=== PATIENT | female | born 1980 | race Caucasian/White ===

== ENCOUNTER 2018-09-30 15:09 | Emergency (ER) | payer OTHER ==
[~2018-09-30] VITALS: Ht 165.1 cm; Wt 90.7 kg
[~2018-09-30 15:09] MED LIST: Percocet 5-3251 EACH PO
[2018-09-30] MEDS ORDERED: CEPH500 PO (15:26)
[2018-09-30] MEDS ORDERED: Bactrim Ds Tab1 EACH PO (15:26)
== END 2018-09-30 15:46 | disposition home or self-care (01) ==
LOC: ER 15:09
DX: L03.317 Cellulitis of buttock (principal); L03.116 Cellulitis of left lower limb; L03.115 Cellulitis of right lower limb; Z88.8 Allergy status to other drugs, medicaments and biological substances; F17.200 Nicotine dependence, unspecified, uncomplicated
CPT/HCPCS: 81025; 99283

== ENCOUNTER 2019-02-14 06:27 | Emergency (ER) | payer OTHER ==
[~2019-02-14] VITALS: Ht 165.1 cm; Wt 90.7 kg
[~2019-02-14 06:27] MED LIST changes: +Bactrim Ds Tab1 EACH PO; +CEPH500 PO
[2019-02-14] MEDS ORDERED: RISP3 PO (07:22)
[2019-02-14] MEDS ORDERED: ATOM10 (07:24)
[2019-02-14] MEDS ORDERED: BUSP5 (07:24)
[2019-02-14] MEDS ORDERED: Roxicodone5 MG PO (08:53)
== END 2019-02-14 09:46 | disposition home or self-care (01) ==
LOC: ER 06:27
DX: S82.832A Other fracture of upper and lower end of left fibula, initial encounter for closed fracture (principal); S70.11XA Contusion of right thigh, initial encounter; F17.200 Nicotine dependence, unspecified, uncomplicated; Z88.8 Allergy status to other drugs, medicaments and biological substances; Z79.899 Other long term (current) drug therapy; W01.0XXA Fall on same level from slipping, tripping and stumbling without subsequent striking against object, initial encounter
CPT/HCPCS: 29505; 73590; 73630; 96372-59; 99283-25; A9270; J1170

== ENCOUNTER 2023-06-23 02:19 | Emergency (ER) | payer OTHER ==
[~2023-06-23] VITALS: Ht 165.1 cm; Wt 65.8 kg
[~2023-06-23 02:19] MED LIST changes: +ATOM10; +BUSP5; +RISP3 PO; +Roxicodone5 MG PO
[2023-06-23 02:34] VITALS: BP 122/84
== END 2023-06-23 05:56 | disposition home or self-care (01) ==
LOC: ER 02:19
DX: S93.401A Sprain of unspecified ligament of right ankle, initial encounter (principal); X50.1XXA Overexertion from prolonged static or awkward postures, initial encounter; Z88.8 Allergy status to other drugs, medicaments and biological substances; Z79.899 Other long term (current) drug therapy; F17.200 Nicotine dependence, unspecified, uncomplicated
CPT/HCPCS: 29515; 73610; 96372-59; 99283-25; A9270; J1885

== ENCOUNTER 2023-12-04 04:28 | Emergency (ER) | payer OTHER ==
[~2023-12-04] VITALS: Ht 165.1 cm; Wt 68.0 kg
[2023-12-04 04:33] VITALS: BP 156/80
== END 2023-12-04 04:45 | disposition home or self-care (01) ==
LOC: ER 04:28
DX: F15.129 Other stimulant abuse with intoxication, unspecified (principal); F17.200 Nicotine dependence, unspecified, uncomplicated; Z88.6 Allergy status to analgesic agent
CPT/HCPCS: 99282

== ENCOUNTER 2024-04-10 05:53 | Emergency (ER) | payer OTHER ==
[~2024-04-10] VITALS: Ht 167.6 cm; Wt 90.7 kg
[2024-04-10 05:59] VITALS: BP 140/98
== END 2024-04-10 06:46 | disposition home or self-care (01) ==
LOC: ER 05:53
DX: F15.929 Other stimulant use, unspecified with intoxication, unspecified (principal); F17.200 Nicotine dependence, unspecified, uncomplicated; Z88.6 Allergy status to analgesic agent
CPT/HCPCS: 99282

== ENCOUNTER 2024-05-28 14:30 | Emergency (ER) | payer OTHER ==
[~2024-05-28] VITALS: Ht 165.1 cm; Wt 90.7 kg
[2024-05-28 15:38] VITALS: BP 136/110
[2024-05-28] MEDS ORDERED: BUSPIRONE HCL30 M6 PO (20:09)
[2024-05-28] MEDS ORDERED: RISP4 PO (20:09)
== END 2024-05-28 20:36 | disposition left against medical advice (07) ==
LOC: ER 14:30
DX: Z77.098 Contact with and (suspected) exposure to other hazardous, chiefly nonmedicinal, chemicals (principal); Z53.29 Procedure and treatment not carried out because of patient's decision for other reasons
CPT/HCPCS: 93005; 93010; 99282-25

== ENCOUNTER 2024-05-29 15:21 | Emergency (ER) | payer OTHER ==
[~2024-05-29] VITALS: Ht 165.1 cm; Wt 90.7 kg
[~2024-05-29 15:21] MED LIST changes: +BUSPIRONE HCL30 M6 PO; +RISP4 PO
[2024-05-29 15:24] VITALS: BP 140/88
[2024-05-29] MEDS ORDERED: Tetracaine HCl/Pf 0.5% Opth Soln 4 ml RIGHTEYE ONE (16:40)
[2024-05-29] MEDS ORDERED: Fluorescein Sod 1MG Opth Strips RIGHTEYE ONE (16:40)
[2024-05-29 17:10] LABS: BASOPHILS ABSOLUTE AUTO 0.05 K/mm3 (0.00-0.23); BASOPHILS PERCENT AUTO 0 % (0-2); EOSINOPHILS ABSOLUTE AUTO 0.02 K/mm3 (0.00-0.68); EOSINOPHILS PERCENT AUTO 0 % (0-6); Hematocrit 39.7 % (33.0-51.0); Hemoglobin 13.9 g/dL (11.5-16.0); IMMATURE GRAN ABSOLUTE AUTO 0.07 K/mm3 (0.00-0.10); IMMATURE GRAN PERCENT AUTO 1 % (0-1); LYMPHOCYTES ABSOLUTE AUTO 1.42 K/mm3 (0.84-5.20); LYMPHOCYTES PERCENT AUTO 12 % (21-46); MONOCYTES ABSOLUTE AUTO 1.11 K/mm3 (0.16-1.47); MONOCYTES PERCENT AUTO 9 % (4-13); Mean Corpuscular HGB 31.8 pg (26.0-34.0); Mean Corpuscular Volume 91 fL (80-100); Mean Platelet Volume 9.7 fL (9.1-12.4); NEUTROPHILS ABSOLUTE AUTO 9.35 K/mm3 (1.96-9.15); NEUTROPHILS PERCENT AUTO 78 % (41-73); Platelet Count 249 K/mm3 (150-400); RDW Coefficient Variation 12.8 % (11.7-14.2); RDW Standard Deviation 42.2 fL (35.1-46.3); Red Blood Cell Count 4.37 M/mm3 (3.80-5.20); White Blood Cell Count 12.02 K/mm3 (4.00-11.30)
[2024-05-29 17:38] LABS: Ethanol (Alcohol), Blood, Med <3 mg/dL; Salicylate <1.7 mg/dL (2.8-20.0)
[2024-05-29 17:40] LABS: Acetaminophen, Random <2.0 ug/mL (10.0-30.0); Alanine Aminotransfer (ALT/SGP 38 U/L (12-78); Albumin, Blood 3.7 g/dL (3.4-5.0); Albumin/Globulin Ratio 0.9 (0.8-1.8); Alk Phos 50 U/L (50-136); Anion Gap 16 mmol/L (3-11); Aspartate Aminotrans (AST/SGOT 45 U/L (12-37); Bilirubin, Total 3.7 mg/dL (0.1-1.0); Blood Urea Nitrogen 16 mg/dL (8-24); Bun/Creatinine Ratio 28.9 (12.0-20.0); CO2, Blood 17 mmol/L (21-32); Calcium, Blood 9.2 mg/dL (8.5-10.1); Chloride, Blood 107 mmol/L (98-108); Creatinine, Blood 0.55 mg/dL (0.40-1.00); Glomerular Filtration Rate 114 (60-); Glucose, Blood 85 mg/dL (70-99); Potassium, Blood 3.6 mmol/L (3.5-5.5); Sodium, Blood 136 mmol/L (136-145); Total Protein, Blood 7.7 g/dL (6.4-8.2)
[2024-05-29] MEDS ORDERED: Ondansetron 4 MG SoluTab SL ONE (18:30)
[2024-05-29] MEDS ORDERED: OxyCODONE HCL 5 MG TAB PO ONE (18:30)
[2024-05-29] MEDS ORDERED: Erythromycin 0.5% Opth Oint 1 gm RIGHTEYE ONE (19:35)
[2024-05-29 20:09] LABS: Source, Urine Clean Catch
[2024-05-29 20:16] LABS: Appearance, Urine Clear (Clear); Bilirubin, Urine Neg (Neg); Blood, Urine Neg (Neg); Color, Urine Yellow (P-Yellow); Glucose Qualitative, Urine Neg (Neg); Ketones, Urine 4+ (Neg); Leukocyte Esterase, Urine Neg (Neg); Nitrite, Urine Neg (Neg); Protein, Urine 1+ (Neg); Urobilinogen, Urine NORM (Normal)
[2024-05-29 20:33] LABS: U Amphetamine Screen DETECTED; U Barbituate Screen Not Detected; U Benzodiazapine Screen Not Detected; U Buprenorphine Screen Not Detected; U Cannabinoids Screen Not Detected; U Cocaine Screen Not Detected; U Methadone Screen Not Detected; U Methamphetamine Screen DETECTED; U Opiates Screen Not Detected; U Oxycodone Screen Not Detected; U Phencyclidine Screen Not Detected
== END 2024-05-29 21:31 | disposition short-term general hospital (02) ==
LOC: ER 15:21
PROVIDERS: Student in an Organized Health Care Education/Training Program
DX: F29 Unspecified psychosis not due to a substance or known physiological condition (principal); S05.11XA Contusion of eyeball and orbital tissues, right eye, initial encounter; S00.11XA Contusion of right eyelid and periocular area, initial encounter; F17.200 Nicotine dependence, unspecified, uncomplicated; X58.XXXA Exposure to other specified factors, initial encounter; Z79.51 Long term (current) use of inhaled steroids; Z88.6 Allergy status to analgesic agent
CPT/HCPCS: 80053; 80320; 81025; 85025; 93005; 93010; 99285-25; A9270; G0480

== ENCOUNTER 2024-06-14 20:44 | Emergency (ER) | payer OTHER ==
[~2024-06-14] VITALS: Ht 165.1 cm; Wt 90.7 kg
[2024-06-14 21:11] VITALS: BP 161/55
[2024-06-15] MEDS ORDERED: ACET500 PO (14:07)
== END 2024-06-14 21:20 | disposition home or self-care (01) ==
LOC: ER 20:44
DX: Z02.89 Encounter for other administrative examinations (principal); S05.31XA Ocular laceration without prolapse or loss of intraocular tissue, right eye, initial encounter; F17.200 Nicotine dependence, unspecified, uncomplicated; Z88.6 Allergy status to analgesic agent; Z79.899 Other long term (current) drug therapy; X58.XXXA Exposure to other specified factors, initial encounter
CPT/HCPCS: 99282

== ENCOUNTER 2024-06-14 22:42 | Observation (INO) | payer OTHER ==
[~2024-06-14] VITALS: Ht 170.2 cm; Wt 72.6 kg
[2024-06-14 22:49] VITALS: BP 151/114
[2024-06-14] MEDS ORDERED: Droperidol 5 mg/2 ml Vial IM ONE (23:25)
[2024-06-14] MEDS ORDERED: LORazepam 2 MG/ML 1ML Injection IM ONE (23:35)
[2024-06-14] MEDS ORDERED: Haloperidol Lactate Inj. 5 MG/ML Injection IM ONE (23:35)
[2024-06-14 23:57] LABS: Source, Urine Clean Catch
[2024-06-15 00:01] LABS: Bilirubin, Urine Neg (Neg); Blood, Urine Neg (Neg); Glucose Qualitative, Urine Neg (Neg); Ketones, Urine 3+ (Neg); Leukocyte Esterase, Urine 1+ (Neg); Nitrite, Urine Neg (Neg); Protein, Urine 1+ (Neg); Urobilinogen, Urine NORM (Normal)
[2024-06-15 00:05] LABS: BASOPHILS ABSOLUTE AUTO 0.05 K/mm3 (0.00-0.23); BASOPHILS PERCENT AUTO 1 % (0-2); EOSINOPHILS ABSOLUTE AUTO 0.02 K/mm3 (0.00-0.68); EOSINOPHILS PERCENT AUTO 0 % (0-6); Hematocrit 38.3 % (33.0-51.0); Hemoglobin 13.6 g/dL (11.5-16.0); IMMATURE GRAN ABSOLUTE AUTO 0.07 K/mm3 (0.00-0.10); IMMATURE GRAN PERCENT AUTO 1 % (0-1); LYMPHOCYTES ABSOLUTE AUTO 2.06 K/mm3 (0.84-5.20); LYMPHOCYTES PERCENT AUTO 19 % (21-46); MONOCYTES ABSOLUTE AUTO 0.89 K/mm3 (0.16-1.47); MONOCYTES PERCENT AUTO 8 % (4-13); Mean Corpuscular HGB 31.6 pg (26.0-34.0); Mean Corpuscular HGB Conc 35.5 g/dL (31.5-36.5); Mean Corpuscular Volume 89 fL (80-100); Mean Platelet Volume 9.3 fL (9.1-12.4); NEUTROPHILS ABSOLUTE AUTO 7.58 K/mm3 (1.96-9.15); NEUTROPHILS PERCENT AUTO 71 % (41-73); Platelet Count 389 K/mm3 (150-400); RDW Coefficient Variation 12.6 % (11.7-14.2); RDW Standard Deviation 41.6 fL (35.1-46.3); Red Blood Cell Count 4.31 M/mm3 (3.80-5.20); White Blood Cell Count 10.67 K/mm3 (4.00-11.30)
[2024-06-15 00:17] LABS: Ethanol (Alcohol), Blood, Med <3 mg/dL; Salicylate <1.7 mg/dL (2.8-20.0)
[2024-06-15 00:17] LABS: Appearance, Urine Clear (Clear); Color, Urine Yellow (P-Yellow)
[2024-06-15 00:18] LABS: Bacteria Few /hpf; Red Blood Cells, Urine Not Seen /hpf (0-2); Squamous Epithelial Cells Few /hpf (Few); White Blood Cells, Urine 0-2 /hpf (0-5)
[2024-06-15 00:19] LABS: Amorphous Light (0-Heavy); Mucus Mod (0-Heavy)
[2024-06-15 00:20] LABS: Acetaminophen, Random <2.0 ug/mL (10.0-30.0); Alanine Aminotransfer (ALT/SGP 53 U/L (12-78); Albumin, Blood 4.2 g/dL (3.4-5.0); Alk Phos 62 U/L (50-136); Anion Gap 14 mmol/L (3-11); Aspartate Aminotrans (AST/SGOT 47 U/L (12-37); Bilirubin, Total 3.8 mg/dL (0.1-1.0); Blood Urea Nitrogen 18 mg/dL (8-24); Bun/Creatinine Ratio 31.7 (12.0-20.0); CO2, Blood 23 mmol/L (21-32); Chloride, Blood 100 mmol/L (98-108); Creatinine, Blood 0.57 mg/dL (0.40-1.00); Globulin, Blood 4.1 g/dL (2.2-4.0); Glomerular Filtration Rate 113 (60-); Glucose, Blood 110 mg/dL (70-99); Potassium, Blood 3.9 mmol/L (3.5-5.5); Sodium, Blood 133 mmol/L (136-145); Total Protein, Blood 8.3 g/dL (6.4-8.2)
[2024-06-15 00:25] LABS: U Amphetamine Screen DETECTED; U Barbituate Screen Not Detected; U Benzodiazapine Screen Not Detected; U Buprenorphine Screen Not Detected; U Cannabinoids Screen Not Detected; U Cocaine Screen Not Detected; U Methadone Screen Not Detected; U Methamphetamine Screen DETECTED; U Opiates Screen Not Detected; U Oxycodone Screen Not Detected; U Phencyclidine Screen Not Detected
[2024-06-15] MEDS ORDERED: Loperamide HCl 2 MG Cap PO PRN (09:05)
[2024-06-15 10:09] LABS: Influenza A, PCR NEGATIVE (NEGATIVE); Influenza B, PCR NEGATIVE (NEGATIVE); Resp Syncytial Virus, PCR NEGATIVE (NEGATIVE); SARS-Cov-2 (COVID-19) PCR, MMC NEGATIVE (NEGATIVE)
[2024-06-15] MEDS ORDERED: ACET500 PO (14:07)
== END 2024-06-15 14:15 | disposition home or self-care (01) ==
LOC: ER 22:42 → EOR 22:43
PROVIDERS: ADMIT Student in an Organized Health Care Education/Training Program
DX: F29 Unspecified psychosis not due to a substance or known physiological condition (principal); F15.10 Other stimulant abuse, uncomplicated; R45.88 Nonsuicidal self-harm; Z72.0 Tobacco use
CPT/HCPCS: 0241U; 80053; 80320; 81001; 81025; 85025; 93005; 93010; 96372; 99285-25; A9270; G0378; G0480; J1630; J2060

== ENCOUNTER 2024-07-07 16:02 | Emergency (ER) | payer OTHER ==
[~2024-07-07] VITALS: Ht 165.1 cm; Wt 90.7 kg
[~2024-07-07 16:02] MED LIST changes: +ACET500 PO
[2024-07-07 16:49] VITALS: BP 132/78
[2024-07-07] MEDS ORDERED: FentaNYL Citrate 50 MCG/ML 2 ML Injection IV ONE ×3 (18:30→22:55)
[2024-07-07 19:37] LABS: BASOPHILS ABSOLUTE AUTO 0.02 K/mm3 (0.00-0.23); BASOPHILS PERCENT AUTO 0 % (0-2); EOSINOPHILS ABSOLUTE AUTO 0.14 K/mm3 (0.00-0.68); EOSINOPHILS PERCENT AUTO 2 % (0-6); Hemoglobin 12.8 g/dL (11.5-16.0); IMMATURE GRAN ABSOLUTE AUTO 0.03 K/mm3 (0.00-0.10); IMMATURE GRAN PERCENT AUTO 1 % (0-1); LYMPHOCYTES ABSOLUTE AUTO 1.25 K/mm3 (0.84-5.20); LYMPHOCYTES PERCENT AUTO 20 % (21-46); MONOCYTES ABSOLUTE AUTO 0.45 K/mm3 (0.16-1.47); MONOCYTES PERCENT AUTO 7 % (4-13); Mean Corpuscular HGB 31.4 pg (26.0-34.0); Mean Corpuscular HGB Conc 35.6 g/dL (31.5-36.5); Mean Corpuscular Volume 89 fL (80-100); Mean Platelet Volume 9.8 fL (9.1-12.4); NEUTROPHILS ABSOLUTE AUTO 4.37 K/mm3 (1.96-9.15); NEUTROPHILS PERCENT AUTO 70 % (41-73); Platelet Count 248 K/mm3 (150-400); RDW Coefficient Variation 12.4 % (11.7-14.2); RDW Standard Deviation 39.6 fL (35.1-46.3); Red Blood Cell Count 4.07 M/mm3 (3.80-5.20); White Blood Cell Count 6.26 K/mm3 (4.00-11.30)
[2024-07-07 20:05] LABS: Albumin, Blood 3.6 g/dL (3.4-5.0); Bilirubin, Total 1.9 mg/dL (0.1-1.0); Bun/Creatinine Ratio 25.6 (12.0-20.0); Calcium, Blood 8.8 mg/dL (8.5-10.1); Creatinine, Blood 0.43 mg/dL (0.40-1.00); Globulin, Blood 3.6 g/dL (2.2-4.0); Potassium, Blood 5.1 mmol/L (3.5-5.5); Total Protein, Blood 7.2 g/dL (6.4-8.2)
[2024-07-07] MEDS ORDERED: LevoFLOXacin 750 MG/D5W 150ML 150 ML IV ONE (20:25)
[2024-07-07] MEDS ORDERED: Diphth,Pertuss(Acell),Tet Vac 0.5 ML VIAL IM ONE (20:25)
[2024-07-07 21:06] LABS: CORONAVIRUS COVID-19 AG Negative (NEGATIVE); INFLUENZA A AG Negative (NEGATIVE); INFLUENZA B AG Negative (NEGATIVE)
[2024-07-07] MEDS ORDERED: Tetracaine HCl/Pf 0.5% Opth Soln 4 ml LEFTEYE ONE (22:35)
== END 2024-07-07 23:00 | disposition short-term general hospital (02) ==
LOC: ER 16:02
PROVIDERS: Student in an Organized Health Care Education/Training Program
DX: S05.32XA Ocular laceration without prolapse or loss of intraocular tissue, left eye, initial encounter (principal); Z88.6 Allergy status to analgesic agent; Z79.899 Other long term (current) drug therapy; F17.200 Nicotine dependence, unspecified, uncomplicated; R44.0 Auditory hallucinations; X83.8XXA Intentional self-harm by other specified means, initial encounter
CPT/HCPCS: 70480; 80053; 85025; 87428-QW; 90471; 90715; 96365; 96366; 96375; 96376; 99285-25; J1956; J3010

== ENCOUNTER 2025-04-14 00:23 | Observation (INO) | payer OTHER ==
[~2025-04-14] VITALS: Ht 167.6 cm; Wt 83.9 kg
[~2025-04-14 00:23] MED LIST changes: +BUPROPION XL150 M1 PO; +BUSPIRONE HCL10 M6 PO; +Benztropine Mesy1 MG PO; +HALO2 PO; +HYDROXYZINE PAM25 MG PO; +MELO7.5 PO; +OLANZAPINE ODT512 PO; +SENOKOT8.6 MG PO
[2025-04-14] MEDS ORDERED: Haloperidol Lactate Inj. 5 MG/ML Injection IM ONE (01:25)
[2025-04-14 01:59] LABS: BASOPHILS ABSOLUTE AUTO 0.04 K/mm3 (0.00-0.23); BASOPHILS PERCENT AUTO 1 % (0-2); EOSINOPHILS ABSOLUTE AUTO 0.21 K/mm3 (0.00-0.68); EOSINOPHILS PERCENT AUTO 3 % (0-6); Hematocrit 33.1 % (33.0-51.0); Hemoglobin 12.3 g/dL (11.5-16.0); IMMATURE GRAN ABSOLUTE AUTO 0.02 K/mm3 (0.00-0.10); IMMATURE GRAN PERCENT AUTO 0 % (0-1); LYMPHOCYTES ABSOLUTE AUTO 2.82 K/mm3 (0.84-5.20); LYMPHOCYTES PERCENT AUTO 33 % (21-46); MONOCYTES ABSOLUTE AUTO 1.17 K/mm3 (0.16-1.47); MONOCYTES PERCENT AUTO 14 % (4-13); Mean Corpuscular HGB Conc 37.2 g/dL (31.5-36.5); Mean Corpuscular Volume 84 fL (80-100); NEUTROPHILS ABSOLUTE AUTO 4.23 K/mm3 (1.96-9.15); NEUTROPHILS PERCENT AUTO 50 % (41-73); NRBC ABSOLUTE 0.00 K/mm3 (0.00-0.02); NRBC Auto 0.0 /100 WBC (0.0-0.2); Platelet Count 310 K/mm3 (150-400); RDW Coefficient Variation 11.9 % (11.7-14.2); RDW Standard Deviation 36.5 fL (35.1-46.3)
[2025-04-14 02:22] LABS: Salicylate 3.6 mg/dL (2.8-20.0)
[2025-04-14 02:33] LABS: Acetaminophen, Random <2.0 ug/mL (10.0-30.0); Alanine Aminotransfer (ALT/SGP 25 U/L (12-78); Albumin, Blood 4.0 g/dL (3.4-5.0); Albumin/Globulin Ratio 1.2 (0.8-1.8); Anion Gap 9 mmol/L (3-11); Aspartate Aminotrans (AST/SGOT 36 U/L (12-37); Bilirubin, Total 1.5 mg/dL (0.1-1.0); Blood Urea Nitrogen 20 mg/dL (8-24); CO2, Blood 25 mmol/L (21-32); Calcium, Blood 9.4 mg/dL (8.5-10.1); Chloride, Blood 101 mmol/L (98-108); Creatinine, Blood 0.69 mg/dL (0.40-1.00); Globulin, Blood 3.3 g/dL (2.2-4.0); Glucose, Blood 137 mg/dL (70-99); Potassium, Blood 3.6 mmol/L (3.5-5.5); Sodium, Blood 131 mmol/L (136-145); Total Protein, Blood 7.3 g/dL (6.4-8.2)
[2025-04-14 04:01] LABS: Source, Urine Clean Catch
[2025-04-14 04:06] LABS: Bilirubin, Urine Neg (Neg); Glucose Qualitative, Urine Neg (Neg); Ketones, Urine Neg (Neg); Leukocyte Esterase, Urine Neg (Neg); Protein, Urine Neg (Neg); Specific Gravity, Urine 1.010 (1.003-1.022); Urobilinogen, Urine NORM (Normal)
[2025-04-14 04:07] LABS: Color, Urine Pale Yellow (P-Yellow)
[2025-04-14 04:26] LABS: U Amphetamine Screen DETECTED; U Barbiturate Screen Not Detected; U Benzodiazapine Screen Not Detected; U Buprenorphine Screen Not Detected; U Cannabinoids Screen Not Detected; U Cocaine Screen Not Detected; U Methadone Screen Not Detected; U Methamphetamine Screen DETECTED; U Opiates Screen Not Detected; U Oxycodone Screen Not Detected; U Phencyclidine Screen Not Detected
[2025-04-14] MEDS ORDERED: Buspirone HCl15 MG PO (07:38)
[2025-04-14] MEDS ORDERED: Naltrexone HCl50 MG PO (07:38)
[2025-04-14] MEDS ORDERED: OLAN10 PO (07:39)
[2025-04-14] MEDS ORDERED: HYDPAM50 PO (07:39)
[2025-04-14] MEDS ORDERED: DORZOPSO LEFTEYE (07:40)
[2025-04-14] MEDS ORDERED: BRIMONIDINE TART5 M2 LEFTEYE (07:40)
[2025-04-14] MEDS ORDERED: LATA.005SO LEFTEYE (07:40)
[2025-04-14] MEDS ORDERED: PRED FORTE5 ML LEFTEYE (07:40)
[2025-04-14] MEDS ORDERED: TIMO.5OPSO LEFTEYE (07:41)
[2025-04-14] MEDS ORDERED: PROZAC2010 PO (07:41)
[2025-04-14] MEDS ORDERED: Timolol 0.5% Opth Soln 5 ML LEFTEYE SCH (09:00)
[2025-04-14] MEDS ORDERED: Brimonidine Tartrate 0.2% Opth 5 ml LEFTEYE SCH (09:00)
[2025-04-14] MEDS ORDERED: PrednisoLONE 1% Opth Susp 5 ML LEFTEYE SCH (09:00)
[2025-04-14 15:42] LABS: Influenza A, PCR NEGATIVE (NEGATIVE); Influenza B, PCR NEGATIVE (NEGATIVE); Resp Syncytial Virus, PCR NEGATIVE (NEGATIVE); SARS-Cov-2 (COVID-19) PCR, MMC NEGATIVE (NEGATIVE)
[2025-04-14] MEDS ORDERED: Latanoprost 0.005% Opth Soln 2.5 ML LEFTEYE SCH (21:00)
[2025-04-15 10:28] VITALS: BP 120/88
== END 2025-04-15 11:56 ==
LOC: ER 00:23 → EOR 00:24
PROVIDERS: Emergency Medicine; ADMIT Emergency Medicine
DX: F25.9 Schizoaffective disorder, unspecified (principal); F17.210 Nicotine dependence, cigarettes, uncomplicated
CPT/HCPCS: 80053; 81003; 85025; 87637; 96372; 99285-25; A9270; G0378; G0480; J1630

== ENCOUNTER 2025-05-04 04:26 | Emergency (ER) | payer OTHER ==
[~2025-05-04] VITALS: Ht 165.1 cm; Wt 90.7 kg
[~2025-05-04 04:26] MED LIST changes: +BRIMONIDINE TART5 M2 LEFTEYE; +Buspirone HCl15 MG PO; +DORZOPSO LEFTEYE; +HYDPAM50 PO; +LATA.005SO LEFTEYE; +Naltrexone HCl50 MG PO; +OLAN10 PO; +PRED FORTE5 ML LEFTEYE; +PROZAC2010 PO; +TIMO.5OPSO LEFTEYE
[2025-05-04 04:35] VITALS: BP 129/94
== END 2025-05-04 06:00 | disposition home or self-care (01) ==
LOC: ER 04:26
DX: F22 Delusional disorders (principal); F15.10 Other stimulant abuse, uncomplicated
CPT/HCPCS: 99282